=== PATIENT | female | born 1930 | race Caucasian/White ===

== ENCOUNTER 2016-09-26 10:12 | Inpatient (IN) | payer OTHER ==
--- NOTE | 2016-09-26 10:45 | PROVIDER DOCUMENTATION ---
HPI-Syncope/Dizziness - General Chief Complaint: Fall Stated Complaint: FALL,DIZZY Time Seen by Provider: 09/26/16 10:37 Source: patient Allergies/Adverse Reactions: Patient Allergies Allergy/AdvReac Type Severity Reaction Status Date / Time meperidine HCl * Allergy Unknown Verified 09/26/16 10:36 [From Demerol] Home Medications: Levothyroxine [Synthroid] 75 microgm PO DAILY 12/28/13 Metformin [Glucophage] 500 mg PO TID 12/28/13 Biotin [Dewayne Biotin] 5,000 mcg PO DAILY 10/22/15 Budesonide/Formoterol Fumarate [Symbicort 160-4.5 Mcg Inhaler] 2 puff IH BID Donepezil HCl 5 mg PO QHS 10/22/15 Memantine HCl [Namenda Xr] 14 mg PO DAILY 10/22/15 Methyl Salicylate/Menthol [Salonpas Patch] 1 each TP PRN PRN 10/22/15 Guaifenesin E.r. [Mucinex] 600 mg PO BID 01/10/16 Furosemide 40 mg PO DAILY 09/26/16 - History of Present Illness-Syncope/Dizzy Nature of Presenting Problem: patient is a 86 y/o F that presents to the ER via EMS after having a syncopal episode while sitting down. Patient reports being dizzy and not remembering anything after. patient doesn't recall the episode( history of dementia). she does c/o of left arm pain(unsure if she hit it during the syncopal episode). History of a-fib in which she is on Coumadin for. Denies chest pain, palpitations, or shortness of breath prior to passing out. Prior Episodes: reports: single episode today Onset/Duration: reports: abrupt, this morning Timing: reports: gone now Position/Activity at time of episode: reports: sitting Symptoms prior to episode: reports: lightheaded. denies: chest pain, abdominal pain, back pain, injury, rapid heart beat Context: reports: lost consciousness. denies: incontinent of urine, incontinent of stool, seizure activity observed Loss of Consciousness: brief (seconds) Location of injury. (If syncope resulted in an injury.): reports: none Current Symptoms: reports: none/feels normal Similar symptoms previously: denies: tests Recently Seen Here or By Another Healthcare Provider: No Review of Systems - Adult - REVIEW OF SYSTEMS - ADULT Constitutional: denies: chills, fever Eyes: denies: decreased vision, blurred vision, double vision, eye pain Ears, Nose, Mouth & Throat: denies: ear discharge, epistaxis, loose teeth, mouth /dental pain, mouth swelling Cardiovascular: reports: syncope. denies: chest pain, palpitations Respiratory: denies: dyspnea on exertion, hemoptysis, shortness of breath Gastrointestinal: denies: abdominal pain, nausea, vomiting Genitourinary: reports: no symptoms reported Musculoskeletal: denies: back pain, neck pain Integumentary: reports: no symptoms reported Neurological: reports: dizziness/vertigo, syncope. denies: headache/migraines, seizure, slurred speech Psychiatric: reports: no symptoms reported Endocrine: reports: no symptoms reported Hematologic/Lymphatic: reports: no symptoms reported Allergic/Immunologic: reports: no symptoms reported All Other Systems: Reviewed and Negative Past History - Adult - PAST MEDICAL HISTORY-ADULT Review of Records: reports: Old Records Reviewed, Nursing Assessment Review, Medications Reviewed Cardiovascular: reports: A-Fib, arrhythmia (v-tach), HTN, hyperlipidemia Respiratory: reports: asthma Neurological: reports: dementia Endocrine/Immune: reports: Diabetes, thyroid disorder - PRIOR SURGERIES/PROCEDURES Surgical/Procedure History: reports: hysterectomy, other (sinus surgery) - IMMUNIZATION STATUS Childhood Immunizations: See Nurse Assessment Flu Vaccine: See Nurse Assessment - FAMILY HISTORY Family History: reviewed, not pertinent - SOCIAL HISTORY Smoking: non-smoker Physical Exam-General - PHYSICAL EXAM-ADULT Initial Vital Signs Reviewed: Yes - CONSTITUTIONAL General Appearance: alert, no apparent distress - EYES Eyes: PERRL/EOMI, pink conjunctivae - HEAD, EARS, NOSE, MOUTH & THROAT HENMT: moist mucous membranes, normal ENT inspection, pharynx normal - NECK Neck: full range of motion, normal inspection. negative: lymphadenopathy - RESPIRATORY Respiratory: lungs clear, normal breath sounds, no respiratory distress, no accessory muscle use - CARDIOVASCULAR Cardiovascular: no JVD, other (irregular regular) - GASTROINTESTINAL (ABDOMEN) Abdominal Exam: normal bowel sounds, non tender, soft - MUSCULOSKELETAL Extremity: no pedal edema, normal capillary refill, pelvis stable, tenderness ( mild tenderness to left hip) - SKIN Integumentary: warm/dry, swelling (posterior scalp), tenderness (posterior) - NEUROLOGIC Neurologic: grossly normal, no motor/sensory deficits - PSYCHIATRIC Psych/Mental Status: negative: disheveled, depressed affect, paranoid Progress - PLAN OF CARE/RESULTS Progress/Plan/Lab Results: 1055- at bedside, son had additional information about patient. Last time she had similar episode she had a UTI. Plan of care-labs, ct head 1250-Son was concerned about patient not being able to ambulate. ( diesel stationary engineer for , will be contacted) Vital Signs Temp Pulse Resp BP Pulse Ox 09/26/16 10:18 97.4 F L 69 18 120/91 96 meperidine HCl * [From Demerol] Allergy (Verified 09/26/16 10:36) Unknown Levothyroxine [Synthroid] 75 microgm PO DAILY 12/28/13 Metformin [Glucophage] 500 mg PO TID 12/28/13 Biotin [Dewayne Biotin] 5,000 mcg PO DAILY 10/22/15 Budesonide/Formoterol Fumarate [Symbicort 160-4.5 Mcg Inhaler] 2 puff IH BID Donepezil HCl 5 mg PO QHS 10/22/15 Memantine HCl [Namenda Xr] 14 mg PO DAILY 10/22/15 Methyl Salicylate/Menthol [Salonpas Patch] 1 each TP PRN PRN 10/22/15 Guaifenesin E.r. [Mucinex] 600 mg PO BID 01/10/16 Albuterol 2.5MG/Ipratrop 0.5MG [Duoneb (A & A)] 3 ml INH RTQ4H #0 neb 01/15/16 Carvedilol [Coreg] 12.5 mg PO BID #0 tablet 01/15/16 Losartan/Hctz [Hyzaar 50/12.5 mg] 1 each PO DAILY #0 tablet 01/15/16 Magnesium Oxide [Mag-Ox] 400 mg PO BID #0 tablet 01/15/16 Duloxetine [Cymbalta] 30 mg PO QAM #0 capsule 02/11/16 Warfarin [Coumadin] 8 mg PO QHS #0 tablet 02/11/16 Furosemide 40 mg PO DAILY 09/26/16 I&O 09/25/16 09/26/16 09/27/16 06:59 06:59 06:59 Output Total 110 Balance -110 Laboratory 09/26/16 09/26/16 09/26/16 11:49 11:49 11:49 WBC 12.34 H RBC 4.17 L Hgb 13.3 Hct 39.6 MCV 95.0 MCH 31.9 H MCHC 33.6 RDW Std Deviation 13.7 Plt Count 260 MPV 10.8 H Immature Gran % (Auto) 0.3 Neut % (Auto) 76.7 H Lymph % (Auto) 13.3 L [place] % (Auto) 8.8 Eos % (Auto) 0.6 Baso % (Auto) 0.3 Immature Gran # (Auto) 0.04 Neut # 9.46 H Lymph # 1.64 [place] # 1.08 H Eos # 0.08 Baso # 0.04 PT 13.1 H INR 1.23 Sodium 139 Potassium 2.8 L Chloride 91 L Carbon Dioxide 32 Anion Gap 16 BUN 28 H Creatinine 1.1 H Estimated GFR/1.73 m2 47 BUN/Creatinine Ratio 25 Glucose 131 H Calculated Osmolality 285 Calcium 9.0 Total Bilirubin 0.41 AST 17 ALT 17 Alkaline Phosphatase 83 Total Protein 6.8 Albumin 3.9 Globulin 2.9 Albumin/Globulin Ratio 1.3 Urine Source Urine Color Urine Turbidity Urine pH Ur Specific [place] Urine Protein Ur Glucose (Stick) Ur Ketones (Stick) Urine Blood Urine Nitrite Urine Bilirubin Urobilinogen Dipstick Urine Leukocytes Urine WBC (Auto) Urine RBC (Auto) U Epithel Cells (Auto) Urine Bacteria (Auto) 09/26/16 11:11 WBC RBC Hgb Hct MCV MCH MCHC RDW Std Deviation Plt Count MPV Immature Gran % (Auto) Neut % (Auto) Lymph % (Auto) [place] % (Auto) Eos % (Auto) Baso % (Auto) Immature Gran # (Auto) Neut # Lymph # [place] # Eos # Baso # PT INR Sodium Potassium Chloride Carbon Dioxide Anion Gap BUN Creatinine Estimated GFR/1.73 m2 BUN/Creatinine Ratio Glucose Calculated Osmolality Calcium Total Bilirubin AST ALT Alkaline Phosphatase Total Protein Albumin Globulin Albumin/Globulin Ratio Urine Source CATH Urine Color STRAW Urine Turbidity CLEAR Urine pH 6.5 Ur Specific [place] 1.006 Urine Protein NEGATIVE Ur Glucose (Stick) NEGATIVE Ur Ketones (Stick) NEGATIVE Urine Blood NEGATIVE Urine Nitrite NEGATIVE Urine Bilirubin NEGATIVE Urobilinogen Dipstick NORMAL Urine Leukocytes TRACE A Urine WBC (Auto) <10 Urine RBC (Auto) <10 U Epithel Cells (Auto) <10 Urine Bacteria (Auto) 1+ Orders Category Date Time Status IV Insertion ORDERED Care 09/26/16 10:58 Active Straight Catheterization ORDERED Care 09/26/16 10:58 Active CHEST-1 VIEW [RAD] Stat Exams 09/26/16 10:58 Draft HEAD/C-SPINE W/O CONTRAST [CT] Stat Exams 09/26/16 10:58 Taken PELVIS [RAD] Stat Exams 09/26/16 10:58 Draft CBC WITH DIFF [HEME] Stat Lab 09/26/16 11:49 Completed COMPREHENSIVE METABOLIC PANEL [CHEM] Stat Lab 09/26/16 11:49 Completed PROTIME WITH INR [COAG] Stat Lab 09/26/16 11:49 Completed URINALYSIS W/POSS RFLX CULT [URINALYSIS] Stat Lab 09/26/16 11:11 Completed URINE CULTURE [RM] Routine Lab 09/26/16 12:02 Received Potassium Chloride E.r. [Klor-Con] Med 09/26/16 12:46 Discontinued 60 meq PO NOW ONE EKG [EKG] Stat Ther 09/26/16 10:18 Ordered - EKG 1 Time of EKG reading by physician:: 10:22 EKG Read and Signed by:: Iggy Walton Jr EKG Interpretation (*Must complete 3 of following elements*): Abnormal Rate: 72 Rhythm: a-fib QRS: RBB (incomplete) ST Wave: non-specific ST changes - XRAY 1 XRAY Study: Chest Impression: Normal XRAY Interpretation: negative 2 XRAY Study: Pelvis Impression: Normal XRAY Interpretation: negative - CT/MRI 1 CT Study: Cervical Spine, Head Impression: Normal CT Results: nad - CONSULTS/PCP/HOSPITALIST Notification #1 *Consult/PCP/Hospitalist*: Time Discussed: 12:57 Reason/Comments: will see patient in ER Consult Disposition: other Departure - Departure Time of Disposition Order: 13:12 DIAGNOSIS: Fall, Weakness, Unsteady gait, Hypokalemia Disposition: ADMITTED INPATIENT 09 Certified Medical Emergency: Emergent Condition: Stable Attestation - Scribe Verification/Attestation Scribe:: Kemrit Waterman Acting as Scribe for:: Barbie Alamo Scribe documention review:: This chart was documented by a scribe and accurately reflects the service the provider performed and the decisions made by the provider. Physician Attestation - Physician Attestation I, the provider, attest to the following statement:: Barbie Alamo Physician documentation Attestation:: This documentation recorded by the scribe accurately reflects the service I personally performed and the decisions made by me.
[2016-09-26 11:18] LABS: URINE MICRO REVIEW NEEDED? NO; URINE SOURCE CATH
[2016-09-26 11:22] LABS: BILIRUBIN URINE NEGATIVE (NEGATIVE); BLOOD URINE NEGATIVE (NEGATIVE); COLOR STRAW; GLUCOSE URINE NEGATIVE (NEGATIVE); LEUKOCYTES URINE TRACE (NEGATIVE); NITRITE URINE NEGATIVE (NEGATIVE); PH URINE 6.5; PROTEIN URINE NEGATIVE (NEGATIVE); SP GRAVITY URINE 1.006; TURBIDITY URINE CLEAR (CLEAR); UROBILINOGEN URINE NORMAL (NORMAL)
[2016-09-26 11:24] LABS: UR EPITHELIAL CELLS <10 /HPF (<10); URINE BACTERIA 1+ /HPF; URINE CULTURE NEEDED? YES; URINE RBC <10 /HPF (<10); URINE WBC <10 /HPF (<10)
--- NOTE | 2016-09-26 11:46 | Diag Imaging Result Document ---
PROCEDURE NAME: PELVIS - 09/26/2016 AP PELVIS: FINDINGS: The hip joint spaces are well maintained. There is sclerosis in the symphysis pubis. There is no evidence of fracture or dislocation. IMPRESSION: No evidence of acute bony disease.
--- NOTE | 2016-09-26 11:47 | Diag Imaging Result Document ---
PROCEDURE NAME: CHEST-1 VIEW - 09/26/2016 AP CHEST PORTABLE AT 1117 HOURS: FINDINGS: The inspiration is better than that on 02/08/2016. Otherwise, there has been no significant change in the appearance of the chest. The heart size is at the upper limits of normal. IMPRESSION: No acute disease.
[2016-09-26 12:10] LABS: MANUAL DIFF NEEDED? NO
[2016-09-26 12:13] LABS: BASO% 0.3 % (0.0-0.8); EOS# 0.08 X1000 (0.0-0.7); EOS% 0.6 % (0.0-10.0); HEMATOCRIT 39.6 % (37.0-47.0); HEMOGLOBIN 13.3 g/dL (12.0-16.0); IMM GRAN# 0.04 X1000 (0.0-0.04); IMM GRAN% 0.3 % (0.0-0.5); LYMPH# 1.64 X1000 (1.2-3.4); LYMPH% 13.3 % (20.5-51.1); MCH 31.9 PG (27-31); MCHC 33.6 g/dL (33-37); MONO# 1.08 X1000 (0.11-0.59); MONO% 8.8 % (1.7-9.3); MPV 10.8 FL (7.4-10.4); NEUT% 76.7 % (42.2-75.2); PLT 260 X1000 (130-400); RBC 4.17 XMIL (4.2-5.4)
[2016-09-26 12:21] LABS: INR 1.23; PROTIME 13.1 Seconds (9.2-11.7)
[2016-09-26 12:46] LABS: ALBUMIN 3.9 g/dL (3.5-5.0); POTASSIUM 2.8 mmol/L (3.5-5.1); TOTAL BILIRUBIN 0.41 mg/dL (0.20-1.00); TOTAL PROTEIN 6.8 g/dL (6.3-8.3)
[2016-09-26] MEDS ORDERED: KLOR-CON PO ONE (12:46)
--- NOTE | 2016-09-26 14:07 | HISTORY AND PHYSICAL ---
HISTORY OF PRESENT ILLNESS: This is an 86-year-old, white female, patient of Dr. Teddy Velarde, formerly a patient of Dr. Casillas's, last admitted here on 02/08/2016. Before that was admitted on 01/10 though 01/15/2016 with syncopal event of uncertain etiology, dizziness, atrial fibrillation and general weakness. She was transferred to [facility] where she was discharged to assisted living, on Monday, 02/04. She was able to walk in the dining room. Apparently had another syncopal episode and fell. Dr. Casillas had wanted to kind of work up inner ear, I do not think that was ever pursued. She went to rehab and apparently things got a little better. She presented again on 02/08/2016. She was having to take 2 or 3 full assistants to get in the bathroom and bedside commode. Called assisted living person out of concern that she could not remain there due to her high risk for fall and transported to the emergency room complaining of being weak. Denied headache at that time. She is here today because she fell. Her son feels she is dizzy again. Indeed she is describing dizziness. She has lateral nystagmus more prominent on the left. Ear exam unremarkable. There are no focal neurologic deficits but she is unable to walk and stand because of dizziness. PAST MEDICAL HISTORY: Otherwise fairly unremarkable. 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 History of prior bilateral humeral fractures from falls. She is status post hysterectomy. She has had endoscopic sinus surgery. History of hypertension. History of asthma. History of abnormal glucose, mood disorder, mild cognitive impairment. ALLERGIES: She is allergic to meperidine. FAMILY HISTORY: Noncontributory. SOCIAL HISTORY: Nonsmoker. She is retired. [facility] at [facility]. She does not use alcoholic beverages. By son's report, she is fairly independent. More recently, she has had trouble with dizziness and walking. REVIEW OF SYSTEMS: General: Apparently weight has been stable. She thinks she has been eating okay. HEENT: Dizziness as described. She does not describe any change in vision or hearing acuity. Respiratory: No increased work of breathing or dyspnea. Cardiovascular: No chest pain or tachy palpitation. GI/: No gross hematuria or dysuria reported. Musculoskeletal/Neurologic: Just general weakness. No focal complaints. PHYSICAL EXAMINATION: VITAL SIGNS: Today temperature 97.4 degrees, pulse 69, respirations 18, blood pressure 120/91. HEENT: The pupils are equal and round. CVP less than 6 cm. LUNGS: Clear in all lung aponte. CARDIOVASCULAR: Regular rhythm and rate without murmur or S3. ABDOMEN: Soft, nontender, nondistended. Positive bowel sounds. No hepatosplenomegaly. EXTREMITIES: Without clubbing, cyanosis, edema. Patient is very tearful and upset. She denies any pain except in her knees and her hip. X-ray of her hip was no sign of fracture. Weight 170 pounds. LABORATORY DATA: White count 36606, hematocrit 39, platelet count 260,000. Sodium 139, potassium 2.8, chloride 91, bicarbonate 32, BUN 28, creatinine 1.1, blood sugar 131, albumin 3.9. Urine really pretty unremarkable. There is 1+ bacteria. Chest x-ray: No acute disease. Hip and pelvis x-ray: No evidence of acute disease. Joint spaces are well maintained. MEDICATIONS: DuoNeb as needed. Dewayne Biotin 5000 mcg daily, budesonide, Symbicort 160/4.5 two puffs b.i.d., Coreg 12.5 b.i.d., donepezil 5 mg a day, Cymbalta 30 mg a day, Lasix 40 mg a day, Mucinex 600 mg b.i.d., Synthroid 75 mcg a day, Losartan hydrochlorothiazide 50/12.5 one a day, magnesium oxide 400 mg b.i.d., Namenda 14 mg p.o. daily, metformin 500 mg t.i.d., Sal[place] Pas patch 1 topically p.r.n., and Coumadin 8 mg a day. LABORATORY DATA: Looking at labs, protime is 13.1. She is on Coumadin for atrial fibrillation. ASSESSMENT AND PLAN: 1. Dizziness and weakness which sounds like vertiginous symptoms consistent with vertigo. I doubt that this is central in origin. I suspect this is from inner ear. We will see how she does with a little bit of fluid and some physical therapy. 2. Hypokalemia which may contribute to her vertigo and dizziness. We will supplement her potassium. 3. History of atrial fibrillation, rate is controlled. She is on Coumadin. I am going to keep her at 8 mg although the ProTime is not therapeutic at this point. She has an incomplete right bundle branch block on EKG but no ST-segment changes. Atrial fibrillation, rate controlled. 4. Hypertension. 5. History of asthma and chronic obstructive pulmonary disease. 6. Mild cognitive impairment which appears to be progressing. 7. A questionable history of mood disorder in the past. I know in the past they were looking at working up the inner ear and these vertiginous complaints which she has had before but apparently they resolved and never went to Ears, Nose and Throat, and had those studies done. I think we can try the Antivert or meclizine as needed. We will give her a regular diet. [facility]. Right now she cannot walk so that will have to improve before she can return.
[2016-09-26] MEDS ORDERED: MENTHOL TP PRN (14:58)
[2016-09-26] MEDS ORDERED: METHYL SALICYLATE TP PRN (14:58)
[2016-09-26] MEDS ORDERED: ZOFRAN IV PRN (14:58)
[2016-09-26] MEDS: NS + KCL 20 MEQ 1,000 ML IV SCH (15:32)
[2016-09-26] MEDS: DUONEB (A & A) INH SCH ×3 (15:50→23:31)
[2016-09-26] MEDS ORDERED: PATIENT'S OWN MED TOP PRN (17:22)
[2016-09-26] MEDS: ARICEPT PO SCH (20:04)
[2016-09-26] MEDS: GLUCOPHAGE PO SCH (20:04)
[2016-09-26] MEDS: MUCINEX PO SCH (20:04)
[2016-09-26] MEDS: MAG-OX PO SCH ×2 (20:04→20:05)
[2016-09-26] MEDS: COUMADIN PO SCH (20:04)
[2016-09-26] MEDS: COREG PO SCH (20:09)
[2016-09-26] MEDS: SYMBICORT 160/4.5 MICROGM INHALER INH SCH (20:56)
[2016-09-27] MEDS ORDERED: FLUZONE QUAD 2016-2017 SYRINGE IM ONE (03:00)
[2016-09-27] MEDS: DUONEB (A & A) INH SCH ×6 (03:20→23:43)
[2016-09-27] MEDS: NS + KCL 20 MEQ 1,000 ML IV SCH ×3 (05:18→18:07)
--- NOTE | 2016-09-27 05:44 | EKG Report ---
Test Performed on : 09/26/2016 10:22:48 AM Test Reason : FALL,DIZZY Blood Pressure : / mmHG Vent. Rate : 072 BPM Atrial Rate : 150 BPM P-R Int : 000 ms QRS Dur : 096 ms QT Int : 416 ms P-R-T Axes : 000 -18 022 degrees QTc Int : 455 ms Atrial fibrillation. Incomplete right bundle branch block Nonspecific T wave abnormality Abnormal ECG When compared with ECG of 08-FEB-2016 14:47, QT has shortened Unconfirmed Result
[2016-09-27 05:57] LABS: MANUAL DIFF NEEDED? NO
[2016-09-27 06:04] LABS: BASO% 0.3 % (0.0-0.8); EOS# 0.12 X1000 (0.0-0.7); EOS% 1.2 % (0.0-10.0); HEMATOCRIT 36.9 % (37.0-47.0); HEMOGLOBIN 12.2 g/dL (12.0-16.0); IMM GRAN# 0.02 X1000 (0.0-0.04); IMM GRAN% 0.2 % (0.0-0.5); LYMPH# 2.05 X1000 (1.2-3.4); LYMPH% 21.3 % (20.5-51.1); MCH 32.1 PG (27-31); MCHC 33.1 g/dL (33-37); MCV 97.1 FL (81-99); MONO# 1.43 X1000 (0.11-0.59); MONO% 14.8 % (1.7-9.3); MPV 11.1 FL (7.4-10.4); NEUT% 62.2 % (42.2-75.2); PLT 245 X1000 (130-400)
[2016-09-27 06:24] LABS: ALBUMIN 3.5 g/dL (3.5-5.0); CALCIUM 9.3 mg/dL (8.8-10.2); POTASSIUM 3.5 mmol/L (3.5-5.1); TOTAL BILIRUBIN 0.42 mg/dL (0.20-1.00); TOTAL PROTEIN 6.1 g/dL (6.3-8.3)
[2016-09-27 06:32] LABS: INR 1.27; PROTIME 13.5 Seconds (9.2-11.7); PTT 27.5 Seconds (22.0-36.0)
[2016-09-27] MEDS: SYNTHROID PO SCH (06:38)
[2016-09-27] MEDS: SYMBICORT 160/4.5 MICROGM INHALER INH SCH ×2 (07:24→19:49)
--- NOTE | 2016-09-27 07:26 | EKG Report ---
Test Performed on : 09/27/2016 06:45:30 AM Test Reason : chest pain Blood Pressure : / mmHG Vent. Rate : 080 BPM Atrial Rate : 375 BPM P-R Int : 000 ms QRS Dur : 086 ms QT Int : 376 ms P-R-T Axes : 000 -01 000 degrees QTc Int : 433 ms Atrial fibrillation. with premature ventricular or aberrantly conducted complexes. with Aflutter yahir acteristIndustriaplex Nonspecific ST abnormality Abnormal ECG When compared with ECG of 26-SEP-2016 10:22, (Unconfirmed) Presenece of PVCs now present Confirmed by Tony Harris DO ([id number]) on 09/27/2016 6:47:02 PM
--- NOTE | 2016-09-27 07:34 | Diag Imaging Result Document ---
PROCEDURE NAME: HEAD/C-SPINE W/O CONTRAST - 09/26/2016 CT OF THE HEAD WITHOUT CONTRAST: FINDINGS: The current study is compared with that of 01/10/2016. There is generalized cerebral atrophy. There is no evidence of mass effect, bleed or abnormal extraaxial fluid collection. Compared to the previous study, the appearance of the brain has not changed significantly. The paranasal sinuses are clear. There is persistence of a metopic suture . The sinusitis which was present in the maxillary and ethmoid sinuses previously has resolved. IMPRESSION: No evidence of acute intracranial disease. CT OF THE CERVICAL SPINE: FINDINGS: There are degenerative disk and facet changes. 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 No prevertebral soft tissue swelling is present. Compared to previous study of 01/10/2016, there has been no significant change in the appearance of the cervical spine. IMPRESSION: No evidence of acute disease.
[2016-09-27] MEDS ORDERED: HYZAAR 50/12.5 MG PO SCH (09:00)
[2016-09-27] MEDS: BIOTIN PO SCH (09:09)
[2016-09-27] MEDS: GLUCOPHAGE PO SCH ×3 (09:10→16:52)
[2016-09-27] MEDS: MUCINEX PO SCH ×2 (09:10→20:50)
[2016-09-27] MEDS: COREG PO SCH ×2 (09:10→20:51)
[2016-09-27] MEDS: CYMBALTA PO SCH (09:10)
[2016-09-27] MEDS: MAG-OX PO SCH ×2 (09:10→20:50)
[2016-09-27] MEDS: NAMENDA XR PO SCH (09:17)
--- NOTE | 2016-09-27 13:23 | PROGRESS NOTE ---
DATE: 09/27/2016 SUBJECTIVE: Ms. Cardona was admitted to [facility] for evaluation of a syncopal episode. According to her family, she had periods of dizziness, nausea and lightheadedness with changes of position. They found her in the floor. She was cautiously hydrated overnight. Unfortunately, she is still orthostatic. Her blood pressure was 155/75 sitting and 128/75 standing. She has a history of paroxysmal atrial fibrillation. She remains in atrial fibrillation. Her heart rate has been well controlled. She has had no bleeding issues on the Coumadin. OBJECTIVE: Vital Signs: She is afebrile. Pulse 82, blood pressure 155/75 sitting, 128/75 standing. Cardiovascular: Irregularly irregular with a soft systolic murmur. Lungs: Clear. Abdomen: Soft, nontender, with active bowel sounds. ASSESSMENT AND PLAN: 1. Syncopal episode. I suspect that she had a syncopal episode due to volume depletion and poor p.o. intake. She is still orthostatic. I am going to hold the losartan HCT and continue cautious rehydration. I will recheck a BP sitting and standing in the morning. 2. Chronic atrial fibrillation. She remains in atrial fibrillation. Her heart rate is well controlled on Coreg. We will adjust her Coumadin to maintain an INR of 2-3. 3. Physical debility. We will consult physical therapy for evaluation.
[2016-09-27] MEDS: TYLENOL PO PRN (14:38)
[2016-09-27] MEDS: ARICEPT PO SCH (20:50)
[2016-09-27] MEDS: COUMADIN PO SCH (20:50)
[2016-09-28] MEDS: DUONEB (A & A) INH SCH ×3 (03:52→15:10)
[2016-09-28] MEDS: NS + KCL 20 MEQ 1,000 ML IV SCH ×4 (05:25→19:28)
[2016-09-28] MEDS: SYNTHROID PO SCH (06:13)
[2016-09-28 06:27] LABS: INR 1.4; PROTIME 14.9 Seconds (9.2-11.7)
[2016-09-28] MEDS ORDERED: ANTIVERT PO PRN (08:25)
[2016-09-28] MEDS ORDERED: COUMADIN PO ONE (08:27)
[2016-09-28] MEDS ORDERED: LEVAQUIN 500 MG/D5W 100 ML IV SCH (08:30)
--- NOTE | 2016-09-28 08:55 | PROGRESS NOTE ---
DATE: 09/28/2016 Ms. Cardona has a history of chronic atrial fibrillation. She remains in atrial fibrillation. Her heart rate is typically in the 80s on Coreg. We held the losartan/hydrochlorothiazide yesterday as she was orthostatic, and cautiously gave her fluids. The orthostasis has resolved. She still is with complaint of dizziness, particularly when she moves her head from side to side. She denies any nausea or vomiting. She is still quite weak. Her INR is subtherapeutic. Pulse 88 and irregular. BP 155/83 sitting, 150/74 standing. CV, irregularly irregular. Lungs clear. Abdomen is soft, nontender, with active bowel sounds. ASSESSMENT AND PLAN: 1. Syncope. I suspect the etiology of her syncopal episode was orthostatic hypotension. She had not been eating or drinking very well for several days prior to admission. She is on a diuretic. We will back down on the fluids to 60 mL per hour. I am going to resume low-dose losartan as her blood pressure is trending upward. Her CT scan showed no evidence of a stroke. She does have chronic atrial fibrillation but her heart rate has been well controlled during this hospitalization. 2. Urinary tract infection. I will continue Levaquin pending the urine culture and sensitivity. 3. Chronic atrial fibrillation. Heart rate is well controlled on Coreg. INR is subtherapeutic. I will give an additional bolus of Coumadin 10 mg now and recheck a prothrombin time in the morning. 4. General debility. We will continue physical therapy.
[2016-09-28] MEDS: NAMENDA XR PO SCH (08:56)
[2016-09-28] MEDS: GLUCOPHAGE PO SCH ×3 (08:56→16:53)
[2016-09-28] MEDS: MAG-OX PO SCH ×2 (08:56→22:36)
[2016-09-28] MEDS: MUCINEX PO SCH ×2 (08:56→22:36)
[2016-09-28] MEDS: CYMBALTA PO SCH (08:56)
[2016-09-28] MEDS: COREG PO SCH ×2 (08:56→22:36)
[2016-09-28] MEDS: TYLENOL PO PRN ×2 (08:57→16:58)
[2016-09-28] MEDS: BIOTIN PO SCH ×2 (10:55→10:57)
[2016-09-28] MEDS: ARICEPT PO SCH (22:36)
[2016-09-28] MEDS: COUMADIN PO SCH (22:37)
[2016-09-29] MEDS: DUONEB (A & A) INH SCH ×6 (03:58→19:15)
[2016-09-29] MEDS: SYMBICORT 160/4.5 MICROGM INHALER INH SCH ×3 (04:00→19:15)
[2016-09-29] MEDS: NS + KCL 20 MEQ 1,000 ML IV SCH ×4 (06:35→16:46)
[2016-09-29] MEDS: SYNTHROID PO SCH (06:36)
[2016-09-29] MEDS: NAMENDA XR PO SCH (08:13)
[2016-09-29] MEDS: MUCINEX PO SCH ×2 (08:14→20:48)
[2016-09-29] MEDS: MAG-OX PO SCH ×2 (08:14→20:48)
[2016-09-29] MEDS: CYMBALTA PO SCH (08:14)
[2016-09-29] MEDS: COREG PO SCH ×2 (08:14→20:48)
[2016-09-29] MEDS: GLUCOPHAGE PO SCH ×3 (08:14→16:46)
[2016-09-29] MEDS: LEVAQUIN PO SCH (08:20)
[2016-09-29] MEDS: COZAAR PO SCH (08:20)
--- NOTE | 2016-09-29 09:04 | PROGRESS NOTE ---
DATE: 09/29/2016 SUBJECTIVE: Mrs. Cardona has a history of chronic atrial fibrillation. She remains in atrial fibrillation. Her heart rate is generally well controlled. She denies any chest pain, palpitations, or anginal equivalents. Her blood pressure is trending upward off the losartan HCT. The orthostasis has resolved. She was not able to do very much with physical therapy yesterday. OBJECTIVE: Vital Signs: She is afebrile. Pulse 62. BP 173/80 standing; 165/109 sitting. CV: Irregularly irregular. Lungs: Clear. Abdomen: Soft, nontender, with active bowel sounds. ASSESSMENT AND PLAN: 1. Urinary tract infection. Urine cultures grew out Citrobacter freundii. She denies any dysuria, increased urinary frequency, or low back pain. We will continue an additional 10 day course of Levaquin 500 mg daily. 2. Syncope secondary to orthostatic hypotension. We have rehydrated her with normal saline. Her blood pressure has normalized off the losartan. I am going to Hep-Lock her fluids. 3. Hypertension. Blood pressure is trending upward. Given her age and overall health, I would like to keep her systolic blood pressures in the 150s. I am going to begin losartan 25 mg daily. Mrs. Cardona is still quite weak and I do not believe that she is strong enough to safely return to independent living at the [facility]. I believe that she would benefit from physical therapy. I have spoken to her son and they are interested in [employer] or [facility] in [place], or potentially [place] here in [place].
[2016-09-29 09:22] LABS: INR 1.68; PROTIME 17.9 Seconds (9.2-11.7)
[2016-09-29] MEDS: BIOTIN PO SCH (10:03)
--- NOTE | 2016-09-29 19:28 | Carotid Study ---
DATE: 09/27/2016 PROCEDURE: Carotid duplex study. REFERRING PHYSICIAN: Nicolás Velarde MD READING PHYSICIAN: Eric Mckenna MD LADLE CLEANER: Rob INDICATION: Dizziness and falls. OBSERVED DATA RIGHT LEFT Brachial Blood Pressure Carotid Pulse Bruits: Carotid/Sub DIAGRAM OF ULTRASOUND IMAGING R L RIGHT INT EXT INT EXT LEFT Ok (cm/s) Ok (cm/s) Subclavian 96/0 Subclavian 84/0 CCA Proximal 82/4 CCA Proximal 84/0 CCA Distal 49/4 CCA Distal 62/6 Bulb 40/2 Bulb 61/12 ICA Proximal 47/5 ICA Proximal 43/11 ICA Mid 82/5 ICA Mid 65/9 ICA Distal 62/13 ICA Distal 80/15 ECA 112/0 ECA 102/0 Vertebral 31/4 Vertebral 80/8 ICA/CCA Ratio 1.0 ICA/CCA Ratio 0.9 % Stenosis 0 to 39% % Stenosis 0 to 39% FINDINGS: Both carotid systems are free of significant plaque. There is antegrade vertebral flow bilaterally. INTERPRETATION: Unremarkable carotid imaging study.
[2016-09-29] MEDS: ARICEPT PO SCH (20:48)
[2016-09-29] MEDS: COUMADIN PO SCH (20:48)
[2016-09-30] MEDS: NS + KCL 20 MEQ 1,000 ML IV SCH ×3 (05:19→20:09)
[2016-09-30] MEDS: SYNTHROID PO SCH (06:38)
[2016-09-30] MEDS: SYMBICORT 160/4.5 MICROGM INHALER INH SCH ×2 (07:36→20:09)
[2016-09-30] MEDS: DUONEB (A & A) INH SCH ×6 (07:36→22:52)
--- NOTE | 2016-09-30 09:25 | PROGRESS NOTE ---
DATE: 09/30/2016 SUBJECTIVE: Mrs. Cardona has a history of chronic atrial fibrillation. Throughout the night, her heart rate was elevated. Her heart rate was ranging from 110 to 125. She has had intermittent episodes of chest pressure and chest tightness. There was no radiation of pain to her neck and arm. She reports that the dizziness has improved greatly with Antivert and the resolution of the orthostasis. Her blood sugars are generally well controlled and range from 99-132. OBJECTIVE: Vital Signs: Temperature 98.3, pulse 109 and irregular, BP 176/90. CV: Irregularly irregular. Lungs: Clear. Abdomen: Soft, nontender, with active bowel sounds. Extremities: Without edema. ASSESSMENT AND PLAN: 1. Chronic atrial fibrillation with rapid ventricular rate. Her heart rate is too fast. We will add digoxin 0.125 mg IV daily and switch the Coreg to Cardizem 30 mg p.o. q.6 hours. I will hold the Cardizem if her heart rate is less than 60. Her INR is still subtherapeutic. We will adjust the dosage of her Coumadin. I want her to have an INR of 2-3. 2. Chest pain. She does have risk factors for ischemic heart disease. We will continue Coumadin, aggressive blood pressure control and will check serial cardiac enzymes. She is not actively having chest pain at this time and so I will not begin topical nitrates at this time. 3. Type 2 noninsulin-dependent diabetes mellitus. Her blood sugars are well controlled. We will continue an 1800 calorie ADA diet and metformin 500 mg t.i.d.
[2016-09-30] MEDS: COZAAR PO SCH (10:19)
[2016-09-30] MEDS: LEVAQUIN PO SCH (10:19)
[2016-09-30] MEDS: MAG-OX PO SCH ×2 (10:19→20:06)
[2016-09-30] MEDS: GLUCOPHAGE PO SCH ×3 (10:19→16:44)
[2016-09-30] MEDS: NAMENDA XR PO SCH (10:19)
[2016-09-30] MEDS: MUCINEX PO SCH ×2 (10:20→20:06)
[2016-09-30] MEDS: CYMBALTA PO SCH (10:20)
[2016-09-30] MEDS: BIOTIN PO SCH (10:20)
[2016-09-30] MEDS: CARDIZEM PO SCH ×3 (10:23→20:06)
[2016-09-30] MEDS: LANOXIN PO SCH (10:26)
--- NOTE | 2016-09-30 17:16 | PROGRESS NOTE ---
DATE: 09/30/2016 Clinically Mrs. Cardona is doing well. She remains in atrial fibrillation. Her heart rate has improved significantly on the digoxin and Cardizem. Her heart rate has been in the 80s. She has had no bleeding complications secondary to the Coumadin. She has had no further episodes of chest pain. Cardiac enzymes have been negative to this point in time.
[2016-09-30] MEDS: ARICEPT PO SCH (20:06)
[2016-09-30] MEDS: COUMADIN PO SCH (20:06)
[2016-10-01] MEDS: CARDIZEM PO SCH ×4 (02:35→20:05)
[2016-10-01] MEDS: DUONEB (A & A) INH SCH ×6 (03:52→23:10)
[2016-10-01] MEDS: SYNTHROID PO SCH (06:03)
[2016-10-01 06:35] LABS: INR 2.13; PROTIME 22.7 Seconds (9.2-11.7)
[2016-10-01] MEDS: SYMBICORT 160/4.5 MICROGM INHALER INH SCH ×2 (07:18→19:45)
[2016-10-01] MEDS: MAG-OX PO SCH ×2 (08:36→20:05)
[2016-10-01] MEDS: GLUCOPHAGE PO SCH ×3 (08:36→17:28)
[2016-10-01] MEDS: MUCINEX PO SCH ×2 (08:36→20:05)
[2016-10-01] MEDS: LOVENOX SUBQ SCH (08:36)
[2016-10-01] MEDS: LEVAQUIN PO SCH (08:36)
[2016-10-01] MEDS: LANOXIN PO SCH (08:36)
[2016-10-01] MEDS: CYMBALTA PO SCH (08:36)
[2016-10-01] MEDS: NAMENDA XR PO SCH (08:36)
[2016-10-01] MEDS: COZAAR PO SCH (08:36)
[2016-10-01] MEDS: BIOTIN PO SCH (10:11)
--- NOTE | 2016-10-01 10:26 | PROGRESS NOTE ---
DATE: 10/01/2016 SUBJECTIVE: Ms. Aye Cardona has a history of chronic atrial fibrillation. She remains in atrial fibrillation. We had switched her from Coreg to Cardizem yesterday, and also added digoxin. Her heart rate looks much better. Her heart rate has been in the 80s and 90s. Her INR is therapeutic at 2.1. She denies any chest pain, palpitations, or anginal equivalents. Blood pressure is trending down. She still has a little bit of dizziness, but it has improved significantly on the Antivert. OBJECTIVE: Vital Signs: Temperature 98.2 degrees, pulse 81, respirations 18, BP 157/88 sitting and 159/91 standing. CV: Irregularly irregular with a soft systolic murmur. Lungs: Lungs clear. Abdomen: Soft, nontender, with active bowel sounds. ASSESSMENT AND PLAN: 1. Chronic atrial fibrillation. Her heart rate is well controlled on a combination of digoxin and Cardizem. We will continue Coumadin to maintain an INR of 2-3. 2. Orthostatic hypotension has resolved. 3. Physical debility. She is still too weak to return home safely. We anticipate transfer to rehabilitation on Monday for short-term rehabilitation, and then hopefully she can return back to the [facility]. We will continue physical therapy.
[2016-10-01] MEDS: NS + KCL 20 MEQ 1,000 ML IV SCH ×2 (17:29→17:30)
[2016-10-01] MEDS: ARICEPT PO SCH (20:05)
[2016-10-01] MEDS: COUMADIN PO SCH (20:05)
[2016-10-02] MEDS: CARDIZEM PO SCH ×4 (01:42→21:59)
[2016-10-02] MEDS: DUONEB (A & A) INH SCH ×6 (03:47→22:40)
[2016-10-02] MEDS: SYNTHROID PO SCH (06:08)
[2016-10-02] MEDS: NS + KCL 20 MEQ 1,000 ML IV SCH ×2 (06:08→17:47)
[2016-10-02 06:39] LABS: INR 2.36; PROTIME 25.2 Seconds (9.2-11.7)
[2016-10-02] MEDS: SYMBICORT 160/4.5 MICROGM INHALER INH SCH ×2 (08:06→19:39)
[2016-10-02] MEDS: LEVAQUIN PO SCH (08:45)
[2016-10-02] MEDS: NAMENDA XR PO SCH (08:45)
[2016-10-02] MEDS: MUCINEX PO SCH ×2 (08:45→21:59)
[2016-10-02] MEDS: MAG-OX PO SCH ×2 (08:45→21:59)
[2016-10-02] MEDS: LANOXIN PO SCH (08:45)
[2016-10-02] MEDS: GLUCOPHAGE PO SCH ×3 (08:45→17:47)
[2016-10-02] MEDS: COZAAR PO SCH (08:46)
[2016-10-02] MEDS: CYMBALTA PO SCH (08:46)
[2016-10-02] MEDS: BIOTIN PO SCH (08:46)
[2016-10-02] MEDS: LOVENOX SUBQ SCH (08:46)
[2016-10-02] MEDS ORDERED: COZAAR PO ONE (10:30)
--- NOTE | 2016-10-02 11:44 | PROGRESS NOTE ---
DATE: 10/02/2016 SUBJECTIVE: Mrs. Cardona has a history of chronic atrial fibrillation. We had recently switched her from Coreg to Cardizem. She remains in atrial fibrillation but her heart rate is well controlled. Heart rate is typically in the 80s. Her protime is therapeutic at 2.36 she has had no bleeding complications on Coumadin. Her blood pressure is still elevated at times, although she is no longer orthostatics. OBJECTIVE: Vital signs: She is afebrile, pulse 82, respirations 18, BP 150/94. CV: Irregularly irregular with a 2/6 systolic ejection murmur. Lungs: Clear. Abdomen: Soft, nontender, with active bowel sounds. ASSESSMENT AND PLAN: 1. Chronic atrial fibrillation. She remains in atrial fibrillation. We will continue digoxin and Cardizem 30 mg q.6 hours for rate control. Her INR is therapeutic on Coumadin. 2. Essential hypertension. Her blood pressure is still a little bit too high at times. I will increase the losartan to 50 mg daily. 3. Physical debility. We will continue physical therapy and anticipate discharge to [facility] in the morning.
[2016-10-02] MEDS: COUMADIN PO SCH (21:58)
[2016-10-02] MEDS: ARICEPT PO SCH (21:58)
[2016-10-03] MEDS: DUONEB (A & A) INH SCH ×3 (03:39→10:45)
[2016-10-03] MEDS: CARDIZEM PO SCH ×3 (04:12→13:20)
[2016-10-03] MEDS: SYNTHROID PO SCH (06:46)
[2016-10-03] MEDS: SYMBICORT 160/4.5 MICROGM INHALER INH SCH (07:35)
[2016-10-03 08:17] VITALS: BP 177/90
[2016-10-03] MEDS ORDERED: COZAAR PO SCH (09:00)
--- NOTE | 2016-10-03 09:18 | DISCHARGE SUMMARY ---
ADMISSION DATE: 09/26/2016 DISCHARGE DATE: 10/03/2016 DISCHARGE DIAGNOSES: 1. Syncopal episode secondary to orthostatic hypotension. 2. Orthostatic hypotension due to volume depletion and poor oral intake. 3. Chronic atrial fibrillation. 4. Hypothyroidism. 5. 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 6. Depression. 7. Chronic obstructive pulmonary disease. 8. Mild cognitive impairment. 9. Urinary tract infection. DISCHARGE INSTRUCTIONS: 1. The patient will be transferred via ambulance to [facility] in order to undergo short-term rehab. 2. Activity as tolerated. 3. An 1800 calorie, ADA diet. 4. Medications: DuoNeb nebulized q.4 hours, Symbicort 160/4.5 two puffs b.i.d., digoxin 125 mcg daily, Cardizem 30 mg q.6 hours, Aricept 5 mg daily, Cymbalta 30 mg daily, Levaquin 500 mg daily for 5 days, levothyroxine 75 mcg daily, losartan 50 mg daily, magnesium oxide 400 mg b.i.d., Antivert 25 mg p.o. t.i.d. p.r.n. dizziness, Namenda 28 mg daily, metformin 500 mg b.i.d., Coumadin 8 mg at bedtime. PHYSICAL EXAMINATION: General: This is an elderly, frail, 86-year-old, lady in no apparent distress. Vital Signs: She is afebrile. Vital signs are stable. CV: Irregularly irregular. Lungs: Clear. Abdomen: Soft, nontender, with active bowel sounds. HOSPITAL COURSE: Ms. Aye Cardona was admitted to [facility] with a syncopal episode. Her initial CT scan of the brain demonstrated chronic white matter changes and atrophy. She was noted to be orthostatic. We held the losartan/hydrochlorothiazide and cautiously rehydrated her. Once the orthostasis resolved, we resumed low-dose losartan. We titrated upward on the losartan as her blood pressure was trending upward. At the time of discharge, her systolic blood pressures were in the 140s and 150s, whereas her diastolic blood pressures were in the 80s and 90s. Given her age and a history of orthostasis, I would like to keep her systolic blood pressures in the 150s. She does have a history of chronic atrial fibrillation. During her hospitalization, she had several episodes of elevated heart rates in the range of 115-125. We stopped the Coreg and began Cardizem 30 mg q.6 hours and added digoxin with stabilization of her heart rate. We adjusted her Coumadin to maintain an INR of 2-3. She does have a longstanding history of type 2 mak-[id number]-[id number] diabetes mellitus. She was maintained on pattern sugars, Humulin R sliding scale, 1800 calorie, ADA diet, and her regular home dosage of metformin. Blood sugars remained stable. She also had a urinary tract infection for which she was initially treated with broad-spectrum antibiotics. Urine cultures grew out Citrobacter. The patient was switched to oral Levaquin and will complete an additional 5 day course of Levaquin as an outpatient. Having reached maximum hospital benefit, the patient was discharged in stable condition.
[2016-10-03] MEDS: CYMBALTA PO SCH (09:19)
[2016-10-03] MEDS: MAG-OX PO SCH (09:19)
[2016-10-03] MEDS: MUCINEX PO SCH (09:19)
[2016-10-03] MEDS: GLUCOPHAGE PO SCH ×2 (09:19→13:20)
[2016-10-03] MEDS: LANOXIN PO SCH (09:19)
[2016-10-03] MEDS: LEVAQUIN PO SCH (09:19)
[2016-10-03] MEDS: NAMENDA XR PO SCH (09:27)
[2016-10-03] MEDS: LOVENOX SUBQ SCH (09:27)
[2016-10-03] MEDS: BIOTIN PO SCH (10:16)
== END 2016-10-03 15:32 | DRG 641 ==
LOC: EDBD → ED 10:12 → EDIPHOLD 13:50 → 4N 18:50
PROVIDERS: ADMIT Internal Medicine; ATTEND Internal Medicine
DX: E86.9 Volume depletion, unspecified (principal); E11.42 Type 2 diabetes mellitus with diabetic polyneuropathy; I48.2 Chronic atrial fibrillation; J44.9 Chronic obstructive pulmonary disease, unspecified; N39.0 Urinary tract infection, site not specified; F32.9 Major depressive disorder, single episode, unspecified; G31.84 Mild cognitive impairment of uncertain or unknown etiology; I10 Essential (primary) hypertension; E03.9 Hypothyroidism, unspecified; I95.1 Orthostatic hypotension; M17.0 Bilateral primary osteoarthritis of knee; J45.909 Unspecified asthma, uncomplicated; E87.6 Hypokalemia; I45.10 Unspecified right bundle-branch block; R79.1 Abnormal coagulation profile; B96.89 Other specified bacterial agents as the cause of diseases classified elsewhere; Z91.81 History of falling; Z79.84 Long term (current) use of oral hypoglycemic drugs; Z79.51 Long term (current) use of inhaled steroids; Z79.899 Other long term (current) drug therapy; Z79.01 Long term (current) use of anticoagulants; Z23 Encounter for immunization
CPT/HCPCS: 36415; 70450; 71010; 72125; 72170; 80053; 81001; 82550; 82948; 83735; 84443; 84484; 85025; 85610; 85730; 87077; 87088; 87186; 93005; 93010; 93880; 94640; 94761; 96365; 96366; J1650; J2405; J3480; Q2038; 97001-GP; 97116-GP; 97530-GP

== ENCOUNTER 2016-11-09 16:34 | Inpatient (IN) | payer OTHER ==
[2016-11-09] MEDS ORDERED: TYLENOL PO PRN (17:39)
[2016-11-09] MEDS ORDERED: ZOFRAN IV PRN (17:39)
[2016-11-09] MEDS ORDERED: CARDIZEM PO SCH (17:39)
[2016-11-09] MEDS ORDERED: ANTIVERT PO PRN (17:39)
[2016-11-09 19:02] LABS: BASO% 0.2 % (0.0-0.8); EOS# 0.09 X1000 (0.0-0.7); EOS% 0.6 % (0.0-10.0); HEMATOCRIT 42.7 % (37.0-47.0); HEMOGLOBIN 14.2 g/dL (12.0-16.0); IMM GRAN# 0.06 X1000 (0.0-0.04); IMM GRAN% 0.4 % (0.0-0.5); LYMPH# 2.63 X1000 (1.2-3.4); LYMPH% 16.3 % (20.5-51.1); MANUAL DIFF NEEDED? YES; MCH 31.1 PG (27-31); MCHC 33.3 g/dL (33-37); MCV 93.4 FL (81-99); MONO# 1.91 X1000 (0.11-0.59); MONO% 11.8 % (1.7-9.3); MPV 11.5 FL (7.4-10.4); NEUT% 70.7 % (42.2-75.2); PLT 298 X1000 (130-400); RBC 4.57 XMIL (4.2-5.4)
[2016-11-09] MEDS: LOVENOX SUBQ SCH (19:13)
[2016-11-09] MEDS: GLUCOPHAGE PO SCH (19:13)
[2016-11-09] MEDS: ROCEPHIN 1 GM/NS 50 ML IV SCH (19:13)
[2016-11-09] MEDS: NS 1,000 ML IV SCH (19:14)
[2016-11-09 19:22] LABS: ALBUMIN 3.5 g/dL (3.5-5.0); CALCIUM 9.7 mg/dL (8.8-10.2); MAGNESIUM 1.9 mg/dL (1.5-2.7); POTASSIUM 4.3 mmol/L (3.5-5.1); TOTAL BILIRUBIN 0.47 mg/dL (0.20-1.00)
[2016-11-09] MEDS: SYMBICORT 160/4.5 MICROGM INHALER INH SCH (19:36)
[2016-11-09] MEDS: DUONEB (A & A) INH SCH ×2 (19:36→23:10)
[2016-11-09 19:41] LABS: BANDS 2 % (0-1); LYMPHS 30 % (21-51); MONO 8 % (1-9)
[2016-11-09] MEDS: ARICEPT PO SCH (21:41)
[2016-11-09] MEDS: MAG-OX PO SCH (21:41)
[2016-11-09] MEDS: CLINDAMYCIN 900 MG/NS 50 ML IV SCH (21:41)
[2016-11-10] MEDS: CLINDAMYCIN 900 MG/NS 50 ML IV SCH ×3 (02:46→18:37)
[2016-11-10] MEDS: DUONEB (A & A) INH SCH ×6 (03:15→23:28)
[2016-11-10] MEDS: SYNTHROID PO SCH ×2 (05:25→06:51)
[2016-11-10] MEDS: LOVENOX SUBQ SCH ×3 (05:25→18:37)
--- NOTE | 2016-11-10 06:46 | Diag Imaging Result Document ---
PROCEDURE NAME: CHEST-PORTABLE - 11/09/2016 PORTABLE CHEST: COMPARISON: Compared to 11/08/2016. FINDINGS: The lungs are well expanded. The heart is not enlarged. The vessels are not distended. No consolidation. No pleural effusions identified. Mild increased density in the apices believed to be artifact. IMPRESSION: The lungs are hyperexpanded, otherwise negative exam.
[2016-11-10] MEDS: SYMBICORT 160/4.5 MICROGM INHALER INH SCH ×2 (07:45→19:44)
[2016-11-10] MEDS: NS 1,000 ML IV SCH ×2 (08:15→21:59)
[2016-11-10] MEDS: COZAAR PO SCH (08:15)
[2016-11-10] MEDS: GLUCOPHAGE PO SCH ×3 (08:15→16:54)
[2016-11-10] MEDS: LANOXIN PO SCH (08:16)
[2016-11-10] MEDS: CYMBALTA PO SCH (08:16)
[2016-11-10] MEDS: MAG-OX PO SCH ×2 (08:16→21:58)
[2016-11-10] MEDS: NAMENDA XR PO SCH (08:16)
[2016-11-10] MEDS: CARDIZEM CD PO SCH (08:18)
--- NOTE | 2016-11-10 09:35 | PROGRESS NOTE ---
DATE: 11/10/2016 SUBJECTIVE: Ms. Cardona was admitted to [facility] for evaluation of an apparent TIA. She had slurred speech and difficulty getting her words out. A CT scan demonstrated chronic white matter changes and diffuse atrophy, but no acute stroke. This morning she seems more alert. Her speech seems much more fluid. She answers questions appropriately. She is oriented to name and place. Her blood pressures are ranging from 146-156 systolically, whereas her diastolic blood pressures are in the 40s and 50s. She denies any chest pain, palpitations, or anginal equivalents. She continues with a persistent nonproductive cough and pleuritic chest pain, in addition to nasal congestion, rhinorrhea and postnasal drip. CT also showed left-sided maxillary sinusitis. OBJECTIVE: Vital Signs: Temperature 98.0 degrees, pulse 76, respirations 16, BP 156/59. CV: Irregularly irregular with a 2/6 systolic ejection murmur at the left sternal margin. Lungs: Clear. Abdomen: Soft, nontender, with active bowel sounds. No hepatosplenomegaly. No abdominal bruits. ASSESSMENT AND PLAN: 1. Transient ischemic attack. We will continue Lovenox 1 mg/kg subcutaneously twice daily. We will check a carotid ultrasound, as well as an magnetic resonance imaging of the brain today. We will continue neuro checks. She has taken Coumadin for a prolonged period of time, and has had difficulty over the past several months maintaining the INR in a therapeutic range. She has no history of valvular atrial fibrillation. She has never had rheumatic heart fever. We had talked to the family and had switched her to Xarelto as an outpatient. We will continue physical therapy. 2. Essential hypertension. Her blood pressure is generally well controlled. We will continue her current regimen of medications. 3. Chronic atrial fibrillation. She remains in atrial fibrillation. Her heart rate is well controlled on diltiazem 120 mg daily. At discharge, we will resume the Xarelto. 4. Maxillary sinusitis with an acute asthma attack. We will continue broad-spectrum antibiotics including Rocephin, clindamycin and DuoNeb nebulizer treatments.
--- NOTE | 2016-11-10 09:42 | Diag Imaging Result Document ---
PROCEDURE NAME: MRI BRAIN W/O CONTRAST - 11/10/2016 MRI BRAIN WITHOUT AND WITH INTRAVENOUS CONTRAST: COMPARISON: Head CT 11/08/2016. FINDINGS: There is no restricted diffusion. There is stable moderate atrophy and ventriculomegaly. Stable periventricular white matter abnormality most compatible with chronic microvascular disease. No evidence of intracranial mass or hemorrhage. There is some fluid throughout the paranasal sinuses, stable from prior. No abnormal contrast enhancement. IMPRESSION: No acute abnormality. No change from prior.
--- NOTE | 2016-11-10 10:24 | HISTORY AND PHYSICAL ---
HISTORY OF PRESENT ILLNESS: Mrs. Aye Cardona is an 86-year-old lady who is well known to me. She has a history of multiple medical problems including degenerative arthritis of her knees, Meniere disease, essential hypertension, chronic atrial fibrillation, asthma, depression, and vascular dementia. Staff from the [facility] at [place] called the office yesterday saying that her right leg was blue and she had unequal pulses in her feet. We had her come to the office for evaluation. On examination both of her feet were cold. It was difficult to feel her pulses. We obtained noninvasive arterial studies of the lower extremities which demonstrated normal blood flow throughout the left leg. She had normal blood flow in the major vessels of the right leg and had small digital disease in the right foot. There was no evidence of an acute occlusion. While talking to Ms Cardona and her son, her son had indicated that she has had intermittent episodes of slurred speech and had appeared to have difficulty getting her words out. She had not had any focal loss of vision or focal unilateral vision. Since getting out of rehab 2 weeks ago she has had increasing difficulty ambulating about the [facility] even with a walker. We had also treated her for an acute asthma attack. We had treated her with a Z-Ochoa and increased her nebulizer treatments. Her chest x-ray was clear. She continued with a persistent cough, pleuritic chest pain, and mild shortness. PAST MEDICAL HISTORY: As above. PAST SURGICAL HISTORY: Hysterectomy, endoscopic sinus surgery. ALLERGIES: Demerol. FAMILY HISTORY: Noncontributory. SOCIAL HISTORY: She is a resident at the [facility]. She has never smoked. She does not consume alcoholic beverages. MEDICATIONS: DuoNeb nebulize q.4 hours, Symbicort 160/4.5 two puffs b.i.d., Lanoxin 125 mcg daily, diltiazem CD 120 mg daily, Aricept 5 mg daily, Cymbalta 30 mg daily, levothyroxine 75 mcg daily, losartan 50 mg daily, magnesium oxide 40 mg b.i.d., meclizine 25 mg p.o. t.i.d. p.r.n., Namenda XR 14 mg daily, metformin 500 mg b.i.d. REVIEW OF SYSTEMS: She denies any recent weight gain or weight loss.HEENT: She wears glasses. She has had some hearing loss. CV: She has palpitations. Pulmonary: See HPI. GI: No nausea, vomiting, reflux, sour brash, dysphagia, melena, or hematochezia. Endocrine: No polyuria. No polydipsia. Skin: No easy bruisability. : No leakage of urine with coughing or laughing. Neurologic: No migraines or seizures. PHYSICAL EXAMINATION: GENERAL: This is a chronically ill-appearing, 86-year-old lady in no apparent distress. VITAL SIGNS: Temperature 97.5 degrees, pulse 86, respiratory rate 16, BP 169/52. HEENT: Fundi with arteriolar wall thickening. Pupils equal, round, reactive to light. Extraocular eye movements intact. TMs without bullae. NECK: Supple. No masses, JVD, or bruits. CV: Irregularly irregular with a 2/6 systolic ejection murmur. LUNGS: Scattered rhonchi bilaterally. ABDOMEN: Soft, nontender, with active bowel sounds. EXTREMITIES: Without edema. Her feet are cool and cold to palpation. I was not able to palpate pulses. BREASTS/EDUCATIONAL TECHNOLOGY SPECIALIST/RECTAL: Deferred. NEUROLOGIC: Cranial nerves 2 through 12 intact grossly. She follows simple commands. Tongue is midline. She has normal tone and strength in the upper and lower extremities. She has normal tone and strength in the lower extremities. DTRs 2+ and symmetric. ASSESSMENT AND PLAN: 1. Transient ischemic attack. She has multiple risk factors for TIA including age, postmenopausal status, chronic atrial fibrillation, and essential hypertension. I am going to admit her to [facility] overnight for observation. We will perform neurological checks q.4 hours. I will check a carotid ultrasound and an MRI of the brain. We will begin Lovenox 1 mg/kg subcutaneously b.i.d. 2. Chronic atrial fibrillation. She remains in atrial fibrillation. Her heart rate is well controlled on a combination of digoxin and Cardizem. 3. Acute asthma exacerbation. We will treat her with supplemental O2, DuoNeb nebulizer treatments, Symbicort, and IV antibiotics including Rocephin and clindamycin. 4. Type 2 noninsulin-dependent diabetes mellitus. We will continue her on pattern sugars, Humulin R sliding scale, and her regular home dosage of metformin. Given the patient's comorbid conditions and clinical course, I believe that it is reasonable to admit her to [facility] overnight for further evaluation and management. At this point in time I anticipate that she will be in the hospital for at least 1 midnight and I will therefore place her in outpatient status with observation services.
[2016-11-10] MEDS: ROCEPHIN 1 GM/NS 50 ML IV SCH (16:54)
[2016-11-10] MEDS: ARICEPT PO SCH (21:58)
[2016-11-11] MEDS: DUONEB (A & A) INH SCH ×6 (03:23→23:30)
[2016-11-11] MEDS: CLINDAMYCIN 900 MG/NS 50 ML IV SCH ×3 (04:34→20:10)
[2016-11-11] MEDS: LOVENOX SUBQ SCH ×2 (06:15→18:14)
[2016-11-11] MEDS: SYNTHROID PO SCH (06:15)
[2016-11-11] MEDS: COZAAR PO SCH (08:01)
[2016-11-11] MEDS: CYMBALTA PO SCH (08:01)
[2016-11-11] MEDS: LANOXIN PO SCH (08:01)
[2016-11-11] MEDS: MAG-OX PO SCH ×2 (08:01→20:11)
[2016-11-11] MEDS: NAMENDA XR PO SCH (08:01)
[2016-11-11] MEDS: GLUCOPHAGE PO SCH ×3 (08:01→18:13)
[2016-11-11] MEDS: CARDIZEM CD PO SCH (08:01)
[2016-11-11] MEDS: SYMBICORT 160/4.5 MICROGM INHALER INH SCH ×2 (08:08→19:54)
[2016-11-11] MEDS: NS 1,000 ML IV SCH ×2 (12:00→20:13)
--- NOTE | 2016-11-11 14:17 | PROGRESS NOTE ---
DATE: 11/11/2016 Ms. Cardona was admitted yesterday on the . She is an 86-year-old patient of Dr. Teddy Toro. She has a history of degenerative arthritis in her knees, Meniere's disease, essential hypertension, chronic atrial fibrillation, asthma, depression, and vascular dementia. The staff at the [facility] at [place] called the office saying that her right leg was blue and she had unequal pulses in her feet. She had come to the office for evaluation. On exam her feet were cold, difficult to feel pulses. Obtained noninvasive arterial studies of lower extremities which demonstrated normal blood flow throughout the left leg. She had normal blood flow of the major vessels of the right leg and had small digital disease in the right foot. There was no evidence of acute occlusion. While talking to Ms. Cardona and her son, her son indicated she had intermittent episodes of slurred speech, and appeared to have difficulty getting words out and had not had any focal loss of vision or focal loss of unilateral vision since getting a rehab 2 weeks ago. She has had increased difficulty ambulating about the [facility] even with a walker. Also I had treated her for acute asthma attack. Treated with a Z-Ochoa, increased her nebulized treatments. I should also mention she has underlying vascular dementia. Mental status appears to be stable. PAST SURGICAL HISTORY: Hysterectomy and endoscopic sinus surgery. Today she is sitting up in a chair. She says she still feels pretty bad, does not feel much better than yesterday. Apparently not walking very far at all. Right now still very weak. She had an MRI of her brain yesterday and no acute abnormality. Chest x-ray from 11/09 lungs were hyperexpanded. Otherwise negative. PHYSICAL EXAMINATION: Exam today, afebrile. Temp 98.5 degrees, pulse 79, respirations 16, blood pressure 179/65.HEENT: Pupils are equal, round. CVP less than 6 cm. Lungs: Clear in all lung aponte anterolateral and posterior. Cardiovascular: Regular rate without murmur or S3. Urine output about 1600 mL. LAB: From the , white count was a little elevated at 16,150, hematocrit 42, platelet count 298,000. Chemistry: Blood sugars 115, 121, 121, 159. ASSESSMENT AND PLAN: 1. Transient ischemic event. She is on Lovenox 1 mg/kg twice a day. Check an ultrasound. MRI of the brain unremarkable. Continue her neurologic checks. She appears to be vocalizing and forming words without any difficulty but still very weak. 2. Weakness. Continue to work on her ability to ambulate. She can't go back to assisted living at this point so most likely will stay the weekend and aim for trying to get her back on Monday or Monday. 3. Essential hypertension. Blood pressures have been well controlled. 4. Chronic atrial fib, rate is controlled. She is on diltiazem 120 mg a day. 5. Maxillary sinusitis and acute asthma attack. She is on some antibiotics. Reviewed her orders. At present time she is on levothyroxine 75 mcg p.o. daily. She is on budesonide inhaler 2 puffs b.i.d., ceftriaxone 1 g q. 24 hours. IV fluids running normal saline at 75 mL an hour. Memantine XR 14 mg daily, magnesium oxide 400 mg b.i.d., Lovenox 80 mg subcutaneously q. 12 h, digoxin 125 mcg daily, Glucophage 500 mg t.i.d., albuterol inhalers q. 4, Cymbalta 30 mg q.a.m., Cozaar 50 mg a day, clindamycin 900 mg IV q. 8 hours. Aricept 5 mg p.o. at bedtime, diltiazem CD 120 mg a day. Tylenol as needed. Antivert as needed.
[2016-11-11] MEDS: ROCEPHIN 1 GM/NS 50 ML IV SCH (18:13)
[2016-11-11] MEDS: ARICEPT PO SCH (20:11)
[2016-11-12] MEDS: NS 1,000 ML IV SCH ×2 (03:38→16:34)
[2016-11-12] MEDS: CLINDAMYCIN 900 MG/NS 50 ML IV SCH ×3 (03:38→21:29)
[2016-11-12] MEDS: DUONEB (A & A) INH SCH ×6 (04:05→23:29)
[2016-11-12] MEDS: SYNTHROID PO SCH ×2 (05:43→06:19)
[2016-11-12] MEDS: LOVENOX SUBQ SCH ×2 (05:43→18:15)
[2016-11-12] MEDS: SYMBICORT 160/4.5 MICROGM INHALER INH SCH ×2 (07:29→20:35)
[2016-11-12] MEDS: COZAAR PO SCH (08:13)
[2016-11-12] MEDS: CYMBALTA PO SCH (08:13)
[2016-11-12] MEDS: MAG-OX PO SCH ×2 (08:13→21:31)
[2016-11-12] MEDS: CARDIZEM CD PO SCH (08:13)
[2016-11-12] MEDS: GLUCOPHAGE PO SCH ×3 (08:13→16:33)
[2016-11-12] MEDS: LANOXIN PO SCH (08:14)
[2016-11-12] MEDS: NAMENDA XR PO SCH (13:49)
[2016-11-12] MEDS: ROCEPHIN 1 GM/NS 50 ML IV SCH ×2 (16:33→19:20)
[2016-11-12] MEDS: ARICEPT PO SCH (21:31)
[2016-11-13] MEDS: DUONEB (A & A) INH SCH ×6 (03:50→23:15)
[2016-11-13] MEDS: CLINDAMYCIN 900 MG/NS 50 ML IV SCH ×3 (04:02→20:15)
[2016-11-13] MEDS: LOVENOX SUBQ SCH ×3 (04:43→17:37)
[2016-11-13] MEDS: SYNTHROID PO SCH (06:46)
[2016-11-13] MEDS: SYMBICORT 160/4.5 MICROGM INHALER INH SCH ×2 (07:26→19:38)
[2016-11-13] MEDS: CARDIZEM CD PO SCH (08:45)
[2016-11-13] MEDS: NS 1,000 ML IV SCH ×2 (09:00→20:35)
[2016-11-13] MEDS: NAMENDA XR PO SCH (10:01)
[2016-11-13] MEDS: GLUCOPHAGE PO SCH ×3 (10:02→17:36)
[2016-11-13] MEDS: LANOXIN PO SCH (10:03)
[2016-11-13] MEDS: COZAAR PO SCH (10:03)
[2016-11-13] MEDS: MAG-OX PO SCH ×2 (10:03→20:15)
[2016-11-13] MEDS: CYMBALTA PO SCH (10:03)
--- NOTE | 2016-11-13 14:23 | PROGRESS NOTE ---
DATE: 11/13/2016 SUBJECTIVE: This is Dr. Teddy Velarde' patient. She was sleeping and easy to arouse. She states she is comfortable. She does feel like she is a little bit stronger. OBJECTIVE: Vital signs: She is afebrile, temperature 98.8 degrees, pulse 85, respirations 16, blood pressure 179/63. Lungs: Are clear in all lung aponte. Cardiovascular: Regular rhythm and rate without murmur or S3. Abdomen: Soft. Skin: Is warm and dry. She has a little pad on her left anterior kelley just dry. Wound appears to be healing. Urine output good. LAB: White blood cell count 16,150 that was the 15th, will repeat that again in the morning. Hematocrit 42, platelet count 298,000. Electrolytes, blood sugars 125, 109, 114. ASSESSMENT AND PLAN: 1. Transient ischemic event. She is on Lovenox 1 mg/kg twice a day. Ultrasound and MRI of the brain unremarkable. Continue neurologic checks. 2. Weakness. Continue work on ability to ambulate and her strength and would like to go back to assisted living. May have to go to rehab for awhile. 3. Essential hypertension. Blood pressure is well controlled. 4. Chronic atrial fibrillation. Rate is controlled on diltiazem 120 mg a day. 5. She had maxillary sinusitis and acute asthma attack. Breathing appears to be comfortable doing well. 6. Review of her orders I do not see any change at this point. Decide on whether she is going to have long-term anticoagulation per Dr. Velarde. Will continue present regimen. Continue ceftriaxone 1 g q.24 hours and continue to try and get her strength up.
[2016-11-13] MEDS: ROCEPHIN 1 GM/NS 50 ML IV SCH (18:00)
[2016-11-13] MEDS: ARICEPT PO SCH (20:15)
[2016-11-14] MEDS: DUONEB (A & A) INH SCH ×6 (03:42→23:29)
[2016-11-14] MEDS: LOVENOX SUBQ SCH ×3 (04:59→22:15)
[2016-11-14] MEDS: CLINDAMYCIN 900 MG/NS 50 ML IV SCH ×4 (04:59→20:33)
[2016-11-14] MEDS: SYNTHROID PO SCH ×2 (05:00→06:24)
[2016-11-14] MEDS: SYMBICORT 160/4.5 MICROGM INHALER INH SCH ×2 (08:09→19:32)
[2016-11-14] MEDS: NAMENDA XR PO SCH ×2 (10:52→16:41)
[2016-11-14] MEDS: NS 1,000 ML IV SCH (10:52)
[2016-11-14] MEDS: CARDIZEM CD PO SCH (10:53)
[2016-11-14] MEDS: GLUCOPHAGE PO SCH ×3 (10:53→16:44)
[2016-11-14] MEDS: CYMBALTA PO SCH (10:53)
[2016-11-14] MEDS: LANOXIN PO SCH (10:53)
[2016-11-14] MEDS: COZAAR PO SCH (10:53)
[2016-11-14] MEDS: MAG-OX PO SCH ×2 (10:53→20:34)
[2016-11-14 12:27] LABS: HEMATOCRIT 37.7 % (37.0-47.0); HEMOGLOBIN 12.6 g/dL (12.0-16.0); MCH 30.9 PG (27-31); MCHC 33.4 g/dL (33-37); MCV 92.4 FL (81-99); MPV 11.2 FL (7.4-10.4); RBC 4.08 XMIL (4.2-5.4)
[2016-11-14 13:05] LABS: AGAP 14; BUN 8 mg/dL (8-22); CALCIUM 8.7 mg/dL (8.8-10.2); CHLORIDE 97 mmol/L (98-107); COSMO 269; POTASSIUM 3.7 mmol/L (3.5-5.1); SODIUM 134 mmol/L (136-145); TCO2 23 mmol/L (25-35)
[2016-11-14] MEDS ORDERED: NAMENDA XR PO ONE ×2 (13:27→13:30)
--- NOTE | 2016-11-14 15:41 | PROGRESS NOTE ---
DATE: 11/14/2016 SUBJECTIVE: Mrs. Cardona has a longstanding history of Alzheimer's dementia. This morning she was easily arousable. She knew her name, that she was at the hospital. She reported that she is breathing comfortably. O2 saturations are ranging from 94-97% on room air. She denies any chest pain, palpitations, or anginal equivalents. She remains in atrial fibrillation. Heart rate is well controlled in the 80s and 90s. Blood sugars are consistently less than 140. She is making slow progress with physical therapy. OBJECTIVE: Vital signs: She is afebrile. Pulse 91, respirations 16, BP 158/80. CV: Irregularly irregular. Lungs: Clear. Abdomen: Soft, nontender, with active bowel sounds. No hepatosplenomegaly. No abdominal bruits. ASSESSMENT AND PLAN: 1. Transient ischemic attack. She has had no further transient ischemic attack type symptoms. At times her speech is fluent. At times it is not fluent. It almost makes me believe that she actually had some sort of suspected cerebrovascular accident. Her MRIs do not show an acute cerebrovascular accident. While she is in the hospital we will continue Lovenox and I will resume Xarelto at discharge. We will continue physical therapy. At this point in time she is really not strong enough [facility] and I believe that she would benefit from additional short-term rehab. I have spoken to her son and they would like to go back to [place]. 2. Hypertension. Her blood pressure is generally well controlled. We will continue her current regimen of medications. 3. Chronic atrial fibrillation. Her heart rate is well controlled. We will continue diltiazem 120 mg daily. 4. Maxillary sinusitis. We will continue ceftriaxone and clindamycin. We will continue her regular home medicines for underlying asthma including budesonide inhaler along with DuoNeb nebulizer treatments.
[2016-11-14] MEDS: ROCEPHIN 1 GM/NS 50 ML IV SCH (16:43)
--- NOTE | 2016-11-14 16:51 | Diag Imaging Result Document ---
PROCEDURE NAME: CHEST-PORTABLE - 11/14/2016 SINGLE FRONTAL RADIOGRAPH OF THE CHEST: COMPARISON: 11/09/2016. FINDINGS: No new consolidations are appreciated. The lungs are grossly clear. There is no definite pleural fluid collection. The cardiomediastinal silhouette is stable. IMPRESSION: Stable chest with no definite acute pathology by plain radiograph.
[2016-11-14] MEDS: ARICEPT PO SCH (20:34)
[2016-11-15] MEDS: NS 1,000 ML IV SCH ×2 (02:03→22:03)
[2016-11-15] MEDS: CLINDAMYCIN 900 MG/NS 50 ML IV SCH ×3 (03:41→22:03)
[2016-11-15] MEDS: DUONEB (A & A) INH SCH ×6 (03:49→23:03)
[2016-11-15] MEDS: SYNTHROID PO SCH (06:00)
[2016-11-15] MEDS: LOVENOX SUBQ SCH ×2 (06:01→18:39)
[2016-11-15] MEDS: SYMBICORT 160/4.5 MICROGM INHALER INH SCH ×2 (07:49→19:36)
[2016-11-15] MEDS: LANOXIN PO SCH (08:45)
[2016-11-15] MEDS: COZAAR PO SCH (08:45)
[2016-11-15] MEDS: CYMBALTA PO SCH (08:45)
[2016-11-15] MEDS: MAG-OX PO SCH ×2 (08:45→22:03)
[2016-11-15] MEDS: GLUCOPHAGE PO SCH ×3 (08:45→18:39)
[2016-11-15] MEDS: NAMENDA XR PO SCH (08:45)
[2016-11-15] MEDS: CARDIZEM CD PO SCH (08:45)
[2016-11-15 09:13] LABS: MANUAL DIFF NEEDED? NO
[2016-11-15 09:17] LABS: BASO% 0.2 % (0.0-0.8); EOS# 0.22 X1000 (0.0-0.7); EOS% 1.8 % (0.0-10.0); HEMATOCRIT 33.7 % (37.0-47.0); HEMOGLOBIN 11.3 g/dL (12.0-16.0); IMM GRAN# 0.02 X1000 (0.0-0.04); IMM GRAN% 0.2 % (0.0-0.5); LYMPH# 1.81 X1000 (1.2-3.4); LYMPH% 14.6 % (20.5-51.1); MCH 31.3 PG (27-31); MCHC 33.5 g/dL (33-37); MCV 93.4 FL (81-99); MONO% 12.9 % (1.7-9.3); MPV 10.5 FL (7.4-10.4); NEUT% 70.3 % (42.2-75.2); PLT 260 X1000 (130-400); RBC 3.61 XMIL (4.2-5.4)
--- NOTE | 2016-11-15 11:07 | Diag Imaging Result Document ---
PROCEDURE NAME: SINUSES - 11/15/2016 PLAIN RADIOGRAPH OF THE PARANASAL SINUSES, 4 VIEWS: COMPARISON: None available. FINDINGS: The paranasal sinuses are grossly clear by plain radiograph. No discrete air-fluid level can be identified. The mastoid air cells appear to be clear. Surrounding bony structures are grossly intact. IMPRESSION: Grossly unremarkable plain radiograph series of the paranasal sinuses.
--- NOTE | 2016-11-15 15:21 | PROGRESS NOTE ---
DATE: 11/15/2016 SUBJECTIVE: Mrs. Cardona was admitted to [facility] with an apparent TIA. An ultrasound of the carotids was normal. An MRI of the brain did not demonstrate an acute stroke. At times her speech is still slurred and at times she appears to have difficulty getting her words out. At other times her speech is fluid and clear. This morning she was awake and easily arousable. Her speech was fluid. She said good morning to me. She knew who she was and where she was. She identified me without difficulty and she could tell me the name of her son. Nursing staff reported that during the night she had not been as easily arousable and had difficulty getting her words out. She had been treated for an acute asthma attack and sinusitis. Repeat chest x-rays were clear. X-rays of her sinuses showed clearing of the infection. OBJECTIVE: Vital signs: She is breathing comfortably and is maintaining O2 saturations of 94-97% on room air. She is afebrile. Pulse 82, respirations 16. CV: Irregularly irregular. Lungs: Clear. Abdomen: Soft, nontender with active bowel sounds. Extremities: Trace ankle edema. ASSESSMENT AND PLAN: 1. Expressive aphasia. The fluency of her speech continues to fluctuate. 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 She has risk factors for cerebral vascular disease including hypertension and chronic atrial fibrillation. We will continue Xarelto 10 mg daily. Given her age, I believe that statins are contraindicated. I believe that she would benefit from physical therapy as well as speech therapy at rehab. I believe that a bed will be ready at [place] tomorrow. 2. Alzheimer's dementia. At times she is more lucid than others. The infection has cleared. Her white count is down to 12,000. We will switch her to oral antibiotics. I suspect there will be some fluctuation due to the severity of her underlying Alzheimer's dementia. She is already on Aricept and Namenda. I will check an EEG to make sure she is not having subclinical seizures. 3. Hypertension. Her blood pressure is generally well controlled. We will continue her current regimen of medications.
[2016-11-15] MEDS: ROCEPHIN 1 GM/NS 50 ML IV SCH (18:38)
--- NOTE | 2016-11-15 20:25 | EEG REPORT ---
DATE: 11/15/2016 COMMENT: This is a digitally recorded EEG on an 86-year-old patient with reported mental status change, question of subclinical seizure. FINDINGS: During waking, the record is composed of polymorphic and rhythmic slowing in the theta and delta range, mostly 4 hertz across the hemispheres symmetrically. There was no sustained posterior dominant rhythm but some 6-7 Hz rhythm was present intermittently posteriorly. Drowsing occurred with appearance of more generalized slowing. Stage 2 sleep was not recorded. Some head movement artifact was present, but no definite epileptiform discharge was identified. INTERPRETATION: Abnormal EEG because of generalized slowing. CORRELATION: This is indicative of a diffuse encephalopathy and is nonspecific. The absence of epileptiform discharges does not exclude a clinical diagnosis of seizures, but there is nothing on this record to suggest the presence of subclinical seizures.
[2016-11-15] MEDS: ARICEPT PO SCH (22:03)
[2016-11-16] MEDS: DUONEB (A & A) INH SCH ×3 (03:48→11:13)
[2016-11-16] MEDS: CLINDAMYCIN 900 MG/NS 50 ML IV SCH (04:06)
[2016-11-16] MEDS ORDERED: XARELTO PO SCH (06:00)
[2016-11-16] MEDS: SYNTHROID PO SCH (06:01)
[2016-11-16] MEDS: LOVENOX SUBQ SCH (06:04)
[2016-11-16 07:52] VITALS: BP 171/62
--- NOTE | 2016-11-16 10:20 | DISCHARGE SUMMARY ---
ADMISSION DATE: 11/09/2016 DISCHARGE DATE: 11/16/2016 DISCHARGE DIAGNOSES: 1. 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 2. Chronic atrial fibrillation. 3. Essential hypertension. 4. Primary hypothyroidism. 5. Type 2 [id number] diabetes mellitus. 6. Major depression. 7. Alzheimer's dementia. 8. Right maxillary sinusitis. 9. Acute asthma exacerbation. DISCHARGE INSTRUCTIONS: 1. The patient will be transferred via ambulance to [facility] in order to undergo short-term rehabilitation. 2. Activity as tolerated. 3. An 1800 calorie, ADA diet. MEDICATIONS: DuoNeb nebulized q.6 hours, Symbicort 160/4.5 two puffs b.i.d., Lanoxin 125 mcg daily, Cardizem CD 120 mg daily, Aricept 5 mg daily, Cymbalta 30 mg daily, levothyroxine 75 mcg daily, Cozaar 50 mg daily, magnesium oxide 400 mg b.i.d., Antivert 25 mg p.o. t.i.d. p.r.n. dizziness, Namenda 28 mg daily, metformin 500 mg t.i.d., Xarelto 10 mg daily, ampicillin 500 mg t.i.d. for 10 days. PHYSICAL EXAMINATION: General: This is a chronically ill-appearing, 86-year-old, lady in no apparent distress. Vital Signs: Temperature 98.3 degrees, pulse 79, respirations 16, BP 160/62. HEENT: Fundi with arteriolar wall thickening. Neck: Supple. No masses, JVD, or bruits. CV: Irregularly irregular. Lungs: Clear. Abdomen: Soft, nontender, with active bowel sounds. HOSPITAL COURSE: Ms. Cardona was admitted to [facility] for evaluation of what appeared to be a TIA. She was initially placed in outpatient status. She was treated with Lovenox 1 mg/kg subcutaneously b.i.d. and was placed on neurological checks for [address] scan of the brain demonstrated no acute intracranial hemorrhage or bleed. She had diffuse white matter changes and diffuse cerebral atrophy. She continued with intermittent episodes of difficulty getting her words out. At other times, her speech was slurred. A carotid ultrasound was unremarkable. An MRI of the brain did not demonstrate an acute stroke. Given the waxing and waning nature of the expressive aphasia, I felt that she has had a suspected embolic stroke. Physical therapy was consulted to see the patient. We also felt that she made slow progress with physical therapy and was not felt to be stable to go back to [facility] at this time. Arrangements were made for her to undergo short-term rehabilitation. I also believed that she would benefit from speech therapy. She had been taking Coumadin for a prolonged period of time and had difficulty maintaining a therapeutic INR. Review of her records demonstrated no evidence of rheumatic heart disease. Her atrial fibrillation was nonvalvular. We switched her to Xarelto. She does have a longstanding history of hypertension. Her blood pressure fluctuated. We made various adjustments in her blood pressure medications. She has had history of orthostasis in the past and I would like to keep the systolic blood pressures in the 150s and 160s. I am afraid that keeping her blood pressure tighter than that would only increase the risks of episodes of hypotension where she could fall and fracture a limb. She does have a longstanding history of chronic atrial fibrillation. She remains in atrial fibrillation. Her heart rate is well controlled on digoxin and Cardizem. She had no bleeding complications secondary to the Xarelto. On admission, she was with complaint of a persistent cough, pleuritic chest pain, a low-grade temperature, chills, and had a leukocytosis of 15,000. X-rays demonstrated a right maxillary sinusitis. Chest x-rays were clear. She was initially treated with intravenous antibiotics including Rocephin and clindamycin. Her symptoms improved significantly. Followup sinus films showed near resolution of the sinus infection. Her white count normalized. We switched her to oral antibiotics and she will complete a 10 day course of ampicillin 500 mg t.i.d. as an outpatient. She has a longstanding history of type 2 [id number]-bcpxlfobm diabetes mellitus. Blood sugars remained generally well controlled. She was maintained on an 1800 calorie, ADA diet, pattern sugars, Humulin R sliding scale, and her regular home dosage of metformin. Having reached maximum hospital benefit, the patient was felt stable for discharge.
[2016-11-16] MEDS: MAG-OX PO SCH (11:05)
[2016-11-16] MEDS: NAMENDA XR PO SCH (11:05)
[2016-11-16] MEDS: CYMBALTA PO SCH (11:05)
[2016-11-16] MEDS: CARDIZEM CD PO SCH (11:05)
[2016-11-16] MEDS: GLUCOPHAGE PO SCH (11:05)
[2016-11-16] MEDS: COZAAR PO SCH (11:05)
[2016-11-16] MEDS: LANOXIN PO SCH (11:05)
== END 2016-11-16 12:02 | DRG 65 ==
LOC: DIRADM 16:34 → 4N 17:26 → OBSVTOIN 11-10 16:03
PROVIDERS: ADMIT Internal Medicine; ATTEND Internal Medicine
DX: I63.8 Other cerebral infarction (principal); J45.901 Unspecified asthma with (acute) exacerbation; R47.01 Aphasia; I48.2 Chronic atrial fibrillation; G30.9 Alzheimer's disease, unspecified; I10 Essential (primary) hypertension; E11.9 Type 2 diabetes mellitus without complications; F32.9 Major depressive disorder, single episode, unspecified; F01.50 Vascular dementia, unspecified severity, without behavioral disturbance, psychotic disturbance, mood disturbance, and anxiety; J32.0 Chronic maxillary sinusitis; E03.9 Hypothyroidism, unspecified; M17.0 Bilateral primary osteoarthritis of knee; H81.09 Meniere's disease, unspecified ear; F02.80 Dementia in other diseases classified elsewhere, unspecified severity, without behavioral disturbance, psychotic disturbance, mood disturbance, and anxiety; R47.81 Slurred speech; Z79.84 Long term (current) use of oral hypoglycemic drugs; Z79.899 Other long term (current) drug therapy; Z79.51 Long term (current) use of inhaled steroids; Z79.01 Long term (current) use of anticoagulants
CPT/HCPCS: 70220; 70551; 71010; 80048; 80053; 82550; 82948; 83735; 85025; 85027; 87040; 93923; 94640; 94761; 95816; A9579; J0696; J1650; J7030; 97116-GP; 97530-GP; S0077